=== PATIENT | female | born 1950 | race African-American/Black ===

== ENCOUNTER 2019-10-26 09:14 | Emergency (ER) | payer OTHER ==
--- NOTE | 2019-10-26 10:33 | RAD REPORT ---
EXAM DESCRIPTION: CT - Head Brain Wo Cont - 10/26/2019 10:19 am CLINICAL HISTORY: CONFUSED, transient alteration of awareness COMPARISON: No comparisons TECHNIQUE: Axial 5 mm thick images of the head were obtained without IV contrast. All CT scans are performed using dose optimization technique as appropriate and may include automated exposure control or mA/KV adjustment according to patient size. FINDINGS: No intracranial hemorrhage, mass, edema or shift of mid-line structures. No acute infarcti on changes seen. No abnormal extra-axial fluid collections. Ventricles are normal. No atrophy changes are present. Chronic ischemic changes evident in the parietal white matter. Mastoid air cells and visualized portions of the paranasal sinuses are clear. No acute bony findings. IMPRESSION: No acute intracranial finding identifiable. Chronic ischemic changes evident in the cerebral white matter. Chronic ischemic change can potentially mask acute nonhemorrhagic CVA. MR imaging could be performed if there is concern for acute CVA.
[2019-10-26 10:52] LABS: Absolute Lymphocytes (CBC) 0.8 K/uL (0.7-4.9); Basophils % 0.6 % (0-1.3); Hematocrit 42.1 % (36.0-45.0); Lymphocytes % 15.9 % (15.3-44.8); MPV 9.4 fL (7.6-11.3); RBC Red Blood Cell Count 4.57 M/uL (3.86-4.86)
--- NOTE | 2019-10-26 10:57 | EDPHYS ---
Physician Documentation [facility] Name: Leodna Worthington Age: 69 yrs Sex: Female : 1950 Arrival Date: 10/26/2019 Time: 09:18 Bed 18 Private MD: ED Physician Terry Angeles HPI: 10/25 18:02 This 69 yrs old Black Female presents to ER via Ambulatory with complaints of Confusion.kdr 18:02 The patient presents with confusion, disorientation, to time. Onset: The kdr symptoms/episode began/occurred 2 day(s) ago. Possible causes: CVA or TIA, low blood sugar, unknown. Associated signs and symptoms: The patient has no apparent associated signs or symptoms. Current symptoms: In the emergency department the patient's symptoms are unchanged from the initial presentation. Patient's baseline: Neuro: alert and fully oriented, Motor: no deficits, Ambulation: walks without assistance, Speech: normal for age. The patient has not experienced similar symptoms in the past. The patient has not recently seen a physician. Historical: - Allergies: : No Known Allergies; jl7 - Home Meds: :31 Nifedipine Oral [Active]; losartan oral oral [Active]; Tramadol Oral [Active]; jl7 - PMHx: :31 Hypertension; Hyperlipidemia; Chronic pain; jl7 - Immunization history:: Adult Immunizations not up to date. - Social history:: Smoking status: Patient reports the use of cigarette tobacco products, smokes one pack cigarettes per day. ROS: 18:02 Constitutional: Negative for fever, chills, and weight loss, Eyes: Negative for injury, kdr pain, redness, and discharge, ENT: Negative for injury, pain, and discharge, Neck: Negative for injury, pain, and swelling, Cardiovascular: Negative for chest pain, palpitations, and edema, Respiratory: Negative for shortness of breath, cough, wheezing, and pleuritic chest pain, Abdomen/GI: Negative for abdominal pain, nausea, vomiting, diarrhea, and constipation, Back: Negative for injury and pain, : Negative for injury, bleeding, discharge, and swelling, MS/Extremity: Negative for injury and deformity, Skin: Negative for injury, rash, and discoloration, Psych: Negative for depression, anxiety, suicide ideation, homicidal ideation, and hallucinations, Allergy/Immunology: Negative for hives, rash, and allergies, Endocrine: Negative for neck swelling, polydipsia, polyuria, polyphagia, and marked weight changes, Hematologic/Lymphatic: Negative for swollen nodes, abnormal bleeding, and unusual bruising. 18:02 Neuro: Positive for altered mental status, Negative for dizziness, gait disturbance, loss of consciousness, numbness, seizure activity, speech changes, tinnitus, tremor, visual changes, weakness. Exam: 18:02 Constitutional: This is a well developed, well nourished patient who is awake, alert, kdr and in no acute distress. Head/Face: Normocephalic, atraumatic. Eyes: Pupils equal round and reactive to light, extra-ocular motions intact. Lids and lashes normal. Conjunctiva and sclera are non-icteric and not injected. Cornea within normal limits. Periorbital areas with no swelling, redness, or edema. Neck: Trachea midline, no thyromegaly or masses palpated, and no cervical lymphadenopathy. Supple, full range of motion without nuchal rigidity, or vertebral point tenderness. No Meningismus. Chest/axilla: Normal chest wall appearance and motion. Nontender with no deformity. No lesions are appreciated. Cardiovascular: Regular rate and rhythm with a normal S1 and S2. No gallops, murmurs, or rubs. Normal PMI, no JVD. No pulse deficits. Respiratory: Lungs have equal breath sounds bilaterally, clear to auscultation and percussion. No rales, rhonchi or wheezes noted. No increased work of breathing, no retractions or nasal flaring. Abdomen/GI: Soft, non-tender, with normal bowel sounds. No distension or tympany. No guarding or rebound. No evidence of tenderness throughout. Back: No spinal tenderness. No costovertebral tenderness. Full range of motion. Skin: Warm, dry with normal turgor. Normal color with no rashes, no lesions, and no evidence of cellulitis. MS/ Extremity: Pulses equal, no cyanosis. Neurovascular intact. Full, normal range of motion. Neuro: Awake and alert, GCS 15, oriented to person, place, time, and situation. Cranial nerves II-XII grossly intact. Motor strength 5/5 in all extremities. Sensory grossly intact. Cerebellar exam normal. Normal gait. Psych: Awake, alert, with orientation to person, place and time. Behavior, mood, and affect are within normal limits. Vital Signs: 09:22 BP 185 / 100; Pulse 94; Resp 18 S; Temp 99(O); Pulse Ox 97% on R/A; Weight 79.38 kg (R);jl7 10:32 BP 188 / 92; Pulse 93; Resp 15 S; Pulse Ox 100% on R/A; ca1 11:00 BP 199 / 104; Pulse 80; Resp 15 S; Pulse Ox 100% on R/A; ca1 11:33 BP 199 / 91; Pulse 82; Resp 15 S; Pulse Ox 100% on R/A; ca1 12:03 BP 217 / 98; Pulse 93; Resp 15 S; Pulse Ox 100% on R/A; ca1 12:30 BP 194 / 93; Pulse 82; Resp 15 S; Pulse Ox 99% on R/A; ca1 MDM: 10:56 Patient medically screened. kdr 18:02 Data reviewed: vital signs, nurses notes, lab test result(s), radiologic studies. kdr Counseling: I had a detailed discussion with the patient and/or guardian regarding: the historical points, exam findings, and any diagnostic results supporting the discharge/admit diagnosis, lab results, radiology results, the need for outpatient follow up. 10/25 10:07 Order name: CBC with Diff; Complete Time: 10:56 kdr 10/25 10:07 Order name: Chem 7 kdr 10/25 10:07 Order name: CT Head Brain wo Cont; Complete Time: 10:56 kdr Administered Medications: 11:25 Drug: cloNIDine 0.1 mg Route: PO; ca1 12:10 Follow up: Response: No adverse reaction; Blood pressure is elevated; Blood pressure is ca1 elevated. Notified probiver. Med ordered and given 12:10 Drug: cloNIDine 0.1 mg Route: PO; ca1 12:54 Follow up: Response: No adverse reaction; Blood pressure is lowered ca1 Disposition: 10/26/19 10:56 Discharged to Home. Impression: Confusion, Memory lapses. - Condition is Stable. - Medication Reconciliation Form, Thank You Letter, Antibiotic Education, Prescription Opioid Use form. - Follow up: Private Physician; When: 2 - 3 days; Reason: If symptoms return, Further diagnostic work-up, Recheck today's complaints, Continuance of care, Re-evaluation by your physician. - Problem is new. - Symptoms have improved. Signatures: Dispatcher [employer] EDMS Terry Angeles MD MD kdr Monika Bliss, RN RN jl7 Annette Motta RN RN ca1 Corrections: (The following items were deleted from the chart) 10:57 10:56 10/26/2019 10:56 Discharged to Home. Impression: Confusional arousals. Condition kdr is Stable. Forms are Medication Reconciliation Form, Thank You Letter, Antibiotic Education, Prescription Opioid Use. Follow up: Private Physician; When: 2 - 3 days; Reason: If symptoms return, Further diagnostic work-up, Recheck today's complaints, Continuance of care, Re-evaluation by your physician. Problem is new. Symptoms have improved. kdr 13:03 10:57 10/26/2019 10:56 Discharged to Home. Impression: Confusion, Memory lapses. ca1 Condition is Stable. Forms are Medication Reconciliation Form, Thank You Letter, Antibiotic Education, Prescription Opioid Use. Follow up: Private Physician; When: 2 - 3 days; Reason: If symptoms return, Further diagnostic work-up, Recheck today's complaints, Continuance of care, Re-evaluation by your physician. Problem is new. Symptoms have improved. kdr
--- NOTE | 2019-10-26 10:57 | ER ---
Nurse's Notes [facility] Name: Leodan Worthington Age: 69 yrs Sex: Female : 1950 Arrival Date: 10/26/2019 Time: 09:18 Bed 18 Private MD: Diagnosis: Confusion, Memory lapses Presentation: 10/25 09:22 Chief complaint: Patient states: Confusion started yesterday morning, "I'm confused jl7 about my birthday and that it's 2020." Pt oriented to self, place, and who the president is, pt reports urinary frequency, denies burning and pain with urination. Coronavirus screen: Proceed with normal triage. Patient denies a cough. Patient denies shortness of breath or difficulty breathing. Patient denies measured and/or subjective temperature greater than 100.4F prior to today's visit. Patient denies travel on a cruise ship or to a country the [facility] currently lists as an affected area. Patient denies contact with known and/or suspected case of COVID-19. Ebola Screen: No symptoms or risks identified at this time. Initial Sepsis Screen: Does the patient meet any 2 criteria? No. Patient's initial sepsis screen is negative. Does the patient have a suspected source of infection? No. Patient's initial sepsis screen is negative. Risk Assessment: Do you want to hurt yourself or someone else? Patient reports no desire to harm self or others. Onset of symptoms was October 25, 2019. Care prior to arrival: None. 09:22 Method Of Arrival: Ambulatory [facility] 09:22 Acuity: NANCY 3 jl7 Triage Assessment: :31 General: Appears in no apparent distress. uncomfortable, Behavior is cooperative, jl7 anxious. Pain: Denies pain. Neuro: Level of Consciousness is awake, alert, obeys commands, confused, Oriented to person, place, time, situation. Historical: - Allergies: : No Known Allergies; jl7 - Home Meds: : Nifedipine Oral [Active]; losartan oral oral [Active]; Tramadol Oral [Active]; jl7 - PMHx: :31 Hypertension; Hyperlipidemia; Chronic pain; jl7 - Immunization history:: Adult Immunizations not up to date. - Social history:: Smoking status: Patient reports the use of cigarette tobacco products, smokes one pack cigarettes per day. Screenin:32 Abuse screen: Denies threats or abuse. Denies injuries from another. Nutritional ca1 screening: No deficits noted. Tuberculosis screening: No symptoms or risk factors identified. Fall Risk IV access (20 points). Total Murguia Fall Scale indicates No Risk (0-24 pts). Assessment: 10:32 General: Appears in no apparent distress. comfortable, Behavior is calm, cooperative, ca1 appropriate for age. General: Pt reports confusion and forgetting the day and year [employer]. Pain: Denies pain. Neuro: Level of Consciousness is awake, alert, obeys commands, Oriented to person, place, time, situation, Incident Response Consultant are equal bilaterally Moves all extremities. Speech is normal, Facial symmetry appears normal, Pupils are PERRLA. Cardiovascular: Heart tones S1 S2 present Capillary refill < 3 seconds Patient's skin is warm and dry. Respiratory: Airway is patent Respiratory effort is even, unlabored, Respiratory pattern is regular, symmetrical. GI: Abdomen is round non-distended, Bowel sounds present X 4 quads. Abd is soft and non tender X 4 quads. : No signs and/or symptoms were reported regarding the genitourinary system. EENT: No signs and/or symptoms were reported regarding the EENT system. Derm: Skin is intact, is healthy with good turgor, Skin is pink, warm \\T\\ dry. Musculoskeletal: Circulation, motion, and sensation intact. Capillary refill < 3 seconds. 11:03 Reassessment: Dr. Angeles at bedside. ca1 11:26 Reassessment: Patient appears in no apparent distress at this time. Patient and/or ca1 family updated on plan of care and expected duration. Pain level reassessed. Patient is alert, oriented x 3, equal unlabored respirations, skin warm/dry/pink. BP elevated. D/C pending on BP. Med given to lower BP. Vital Signs: 09:22 BP 185 / 100; Pulse 94; Resp 18 S; Temp 99(O); Pulse Ox 97% on R/A; Weight 79.38 kg (R);jl7 10:32 BP 188 / 92; Pulse 93; Resp 15 S; Pulse Ox 100% on R/A; ca1 11:00 BP 199 / 104; Pulse 80; Resp 15 S; Pulse Ox 100% on R/A; ca1 11:33 BP 199 / 91; Pulse 82; Resp 15 S; Pulse Ox 100% on R/A; ca1 12:03 BP 217 / 98; Pulse 93; Resp 15 S; Pulse Ox 100% on R/A; ca1 12:30 BP 194 / 93; Pulse 82; Resp 15 S; Pulse Ox 99% on R/A; ca1 ED Course: 09:18 Patient arrived in ED. ag5 09:28 Terry Angeles MD is Attending Physician. kdr 09:29 Triage completed. jl7 09:31 Arm band placed on right wrist. jl7 09:52 Annette Motta, RN is Primary Nurse. ca1 10:19 CT Head Brain wo Cont In Process Unspecified. EDMS 10:32 Patient has correct armband on for positive identification. Bed in low position. Call ca1 light in reach. Side rails up X 1. Pulse ox on. NIBP on. Warm blanket given. 10:32 Initial lab(s) drawn, by nj, sent to lab. Inserted saline lock: 20 gauge in right ca1 antecubital area, using aseptic technique. Blood collected. 13:01 IV discontinued, intact, bleeding controlled, No redness/swelling at site. Pressure ca1 dressing applied. 13:02 No provider procedures requiring assistance completed. ca1 Administered Medications: 11:25 Drug: cloNIDine 0.1 mg Route: PO; ca1 12:10 Follow up: Response: No adverse reaction; Blood pressure is elevated; Blood pressure is ca1 elevated. Notified probiver. Med ordered and given 12:10 Drug: cloNIDine 0.1 mg Route: PO; ca1 12:54 Follow up: Response: No adverse reaction; Blood pressure is lowered ca1 Outcome: 10:56 Discharge ordered by . kdr 13:01 Discharged to home ambulatory, with family. ca1 13:01 Condition: stable 13:01 Discharge instructions given to patient, family, Instructed on discharge instructions, follow up and referral plans. instructed on monitoring BP twice a day and keeping a diary of BP and BP meds taken daily Demonstrated understanding of instructions, follow-up care. 13:03 Patient left the ED. ca1 Signatures: Dispatcher [employer] EDMS Terry Angeles MD MD kdr Monika Bliss RN RN jl7 Annette Motta RN RN ca1 Claudette Mesa ag5 Corrections: (The following items were deleted from the chart) 12:53 12:53 BP 194 / 93; Pulse 82bpm; Resp 15bpm; Spontaneous; Pulse Ox 99% RA; ca1 ca1 12:54 12:53 BP 194 / 93; Pulse 82bpm; Resp 15bpm; Spontaneous; Pulse Ox 99% RA; ca1 ca1
[2019-10-26 10:58] LABS: Potassium 3.4 mmol/L (3.5-5.1)
[2019-10-26] MEDS ORDERED: cloNIDine HCL 0.1 MG TAB ONE ×2 (11:32→12:15)
[2019-10-26 13:09] VITALS: TEMP 99
[2019-10-26 13:16] VITALS: BP 194/93; O2SAT 99
== END 2019-10-26 13:03 | disposition home or self-care (01) ==
LOC: ER 09:14
DX: R41.0 Disorientation, unspecified (principal); R41.3 Other amnesia; I10 Essential (primary) hypertension; E78.5 Hyperlipidemia, unspecified; F17.210 Nicotine dependence, cigarettes, uncomplicated
CPT/HCPCS: 36415; 70450; 80048; 85025; 99284

== ENCOUNTER 2022-10-07 07:59 | Observation (INO) | payer OTHER ==
--- OUTSIDE RECORDS SUMMARY | 2022-10-07 08:01 | XMS REPORT | Continuity of Care Document ---
:1950 Author Organization [facility] t Address [address] [address] Care Team Providers Name Role Phone ARTHUR MENSAH Attending Clinician Unavailable Aurea Attending Clinician Unavailable DERIC Attending Clinician Unavailable BRADEN GIRON Attending Clinician Unavailable CAMILO LARSEN Attending Clinician Unavailable Preston Morales Attending Clinician Unavailable Aurea Admitting Clinician Unavailable DERIC Admitting Clinician Unavailable Payers Payer Name Policy Type Policy Number Effective Date Expiration Date S [facility] [id number] 2021 (MEDICARE 00:00:00 REPLACEMENT/ADVANT AGE - HMO) MEDICARE A-[place]: [id number] 2014 [place] 00:00:00 - [facility] Problems This patient has no known problems. Allergies, Adverse Reactions, Alerts This patient has no known allergies or adverse reactions. Social History Smoking Status Start Date Stop Date Source Heavy Tobacco Smoker Helen Lester Medications Ordered Filled Start Stop Current Ordering Indication Dosage Frequency Signature Comments Components Source Medication Medication Date Date Medication? Clinician (SIG) Name Name tramadol 50 tramadol 50 No 1 Q6H tramadol [place] mg tablet mg tablet 50 mg da Take 1 Take 1 tablet Medical tablet tablet Take 1 Group every 6 every 6 tablet hours by hours by every 6 oral route. oral route. hours by oral route. nifedipine nifedipine No 1 Q1D nifedipine [place] ER 90 mg ER 90 mg ER 90 mg da tablet,exte tablet,exte tablet,ext Medical nded nded ended Group release release release Take 1 Take 1 Take 1 tablet tablet tablet every day every day every day by oral by oral by oral route. route. route. olmesartan olmesartan No 1 Q1D olmesartan [place] 40 mg 40 mg 40 mg da tablet Take tablet Take tablet Medical 1 tablet 1 tablet Take 1 Group every day every day tablet by oral by oral every day route. route. by oral route. Vital Signs Vital Name Observation Time Observation Value Comments Source BP Diastolic 2021-12-30 00:00:00 82 mm[Hg] [facility] Height 2021-12-30 00:00:00 63 [in_i] [facility] BMI (Body Mass 2021-12-30 00:00:00 28.5 kg/m2 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 Encounters Start End Encounter Admission Attending Care Care Encounter Source Date/Time Date/Time Type Type Clinicians Facility Department ID 2022-08-03 2022-08-03 Outpatient FLOWER MENSAH [facility] [id number] [place] 09:59:00 09:59:00 ARTHUR -[id number] [facility] 2022-07-08 2022-07-08 [facility] [id number] [place] 09:01:00 09:01:00 ARTHUR [id number] [facility] 2021-12-30 2021-12-30 [facility] [id number] [place] 00:00:00 00:00:00 [id number] Medical Group 2021-12-30 2021-12-30 Eduin [place]ER [place] - [id number] [place] 00:00:00 00:00:00 Discovery inga Mejia MD: [address] [facility] [address], [place] [address] , Ph. 2021-12-23 2021-12-23 Outpatient Aurea WHITE [facility] [id number] [place] 00:00:00 00:00:00 0830 [facility] 2021-11-04 2021-11-04 Outpatient CAROLYNLAVERN[facility] [id number] [place] 04:13:00 04:13:00 _ANN 0712 [facility] 2020-08-09 2020-08-09 Outpatient EL D'WALKER, [facility] [id number] [place] 11:46:00 11:46:00 BRADEN -[id number] [facility] 2020-08-05 2020-08-05 Outpatient EL D'WALKER, [facility] [id number] [place] 10:08:00 10:08:00 BRADEN -[id number] [facility] 2020-03-01 2020-03-01 Outpatient EL D'WALKER, [facility] [id number] [place] 09:07:00 09:07:00 BRADEN -[id number] [facility] 2020-02-19 2020-02-19 Outpatient EL D'WALKER, [facility] [id number] [place] 09:02:00 09:02:00 BRADEN -[id number] [facility] 2019-10-25 2019-10-25 [facility] [id number] [place] 08:59:00 08:59:00 _ANN 0701 [facility] 2019-10-11 2019-10-11 Outpatient EL D'WALKER, [facility] [id number] [place] 07:34:00 07:34:00 BRADEN -[id number] [facility] 2019-04-03 2019-04-03 Outpatient EL D'WALKER, [facility] [id number] [place] 14:46:00 14:46:00 BRADEN -[id number] [facility] 2018-09-21 2018-09-21 Outpatient EL D'WALKER, [facility] [id number] [place] 14:21:00 14:21:00 BRADEN -[id number] [facility] 2018-09-16 2018-09-16 Outpatient EL D'WALKER, [facility] [id number] [place] 07:48:00 07:48:00 BRADEN -[id number] [facility] 2018-03-28 2018-03-28 Outpatient EL D'WALKER, [facility] [id number] [place] 07:55:00 07:55:00 BRADEN -[id number] [facility] 2017-11-25 2017-11-25 Outpatient FLOWER GIRON, [facility] [id number] [place] 08:42:00 08:42:00 BRADEN -[id number] [facility] 2017-02-10 2017-02-10 Outpatient FLOWER GIRON, [facility] [id number] [place] 08:58:00 08:58:00 BRADEN -[id number] [facility] 2017-01-27 2017-01-27 Emergency ER UGOR, [facility] [id number] [place] 08:51:00 10:33:00 CAMILO -[id number] [facility] 2015-06-04 2015-06-04 Outpatient FLOWER Morales, [facility] [id number] [place] 09:55:00 09:55:00 Preston [id number] [facility] 2014-08-03 2014-08-03 Outpatient FLOWER Morales, [facility] [id number] [place] 08:54:00 08:54:00 Preston [id number] [facility] Results This patient has no known results.
[2022-10-07 08:27] LABS: Absolute Lymphocytes (CBC) 0.7 K/uL (0.7-4.9); Hematocrit 36.7 % (36.0-45.0); Lymphocytes % 12.3 % (15.3-44.8); MCV 93.6 fL (80-100); RBC Red Blood Cell Count 3.92 M/uL (3.86-4.86)
--- NOTE | 2022-10-07 08:39 | RAD REPORT ---
EXAM DESCRIPTION: CT - Head Brain Wo Cont - 10/07/2022 8:30 am CLINICAL HISTORY: Alteration of awareness/confusion COMPARISON: 2019 TECHNIQUE: Computed axial tomography of the head was obtained. IV contrast was not requested. All CT scans are performed using dose optimization technique as appropriate and may include automated exposure control or mA/KV adjustment according to patient size. FINDINGS: An intracranial bleed is not seen The ventricles are normal in caliber No extra-axial fluid collection is noted. Mild low-density areas within periventricular, deep and subcortical white matter likely represent isc hemic changes secondary to small vessel disease. Empty sella turcica Small amount of fluid left maxillary sinus IMPRESSION: No acute intracranial abnormality is seen A small amount of fluid left maxillary sinus may indicate acute sinusitis If patient continues to have symptoms to suggest DROP FORGER pathology then MRI of the brain would be recomme nded
--- NOTE | 2022-10-07 08:39 | RAD REPORT ---
EXAM DESCRIPTION: Ryan Single View10/07/2022 8:34 am CLINICAL HISTORY: Cough COMPARISON: none FINDINGS: The lungs appear clear of acute infiltrate. The heart is mildly enlarged IMPRESSION: No acute abnormalities displayed
[2022-10-07 08:42] LABS: Potassium 3.6 mEq/L (3.5-5.1)
[2022-10-07 08:45] LABS: Troponin High Sensitivity 104.7 pg/mL (<58.9)
[2022-10-07] MEDS ORDERED: ASPIRIN 81 MG CHEWABLE TABLET ONE (09:07)
[2022-10-07] MEDS ORDERED: LABETALOL 20 MG/4ML SYRINGE IV ONE ×2 (09:08→10:19)
--- NOTE | 2022-10-07 09:20 | EDPHYS ---
Physician Documentation [facility] Name: Leodan Worthington Age: 72 yrs Sex: Female : 1950 Arrival Date: 10/07/2022 Time: 07:59 Bed 8 Private MD: ED Physician Jeremiah Najera HPI: 10/07 08:22 This 72 yrs old Black Female presents to ER via EMS with complaints of Altered Mental bs3 Status. 08:22 72-year-old female history of hypertension presents after an episode of confusion this bs3 morning she was staying with her friend's house when she was awoken and appeared to be confused EMS was called for seizure-like activity when they got there she seem to be waking up without seizure-like activity and was brought in per the patient the person who she was with said that she was talking in her sleep and got concerned and therefore woke the patient up when she got woken up she was slightly confused. She denies any current complaints. Historical: - Allergies: 08:02 No Known Allergies; bp - Home Meds: 08:02 losartan Oral [Active]; bp - PMHx: 08:02 Chronic pain; Hyperlipidemia; Hypertension; bp - Immunization history:: Adult Immunizations up to date. - Social history:: Smoking status: Patient denies any tobacco usage or history of. ROS: 08:22 Constitutional: Negative for fever, chills bs3 08:22 All other systems are negative. Exam: 08:22 Constitutional: This is a well developed, well nourished patient who is awake, alert, bs3 and in no acute distress. Head/Face: Normocephalic, atraumatic. Eyes: Pupils equal round and reactive to light, extra-ocular motions intact. Lids and lashes normal. ENT: mmm, no posterior phyarngeal erythema Neck: Trachea midline, no thyromegaly, no neck stiffness Chest/axilla: Normal chest wall appearance and motion. Nontender with no deformity. No lesions are appreciated. Cardiovascular: Regular rate and rhythm with a normal S1 and S2. symmetric pulses in upper extremities Respiratory: Lungs have equal breath sounds bilaterally, clear to auscultation, no respiratory distress Abdomen/GI: Soft, non-tender, no rebound or guarding MS/ Extremity: Pulses equal, no cyanosis. Neurovascular intact. Full, normal range of motion. Neuro: Awake and alert, GCS 15, oriented to person, place, time, and situation. Cranial nerves II-XII grossly intact. Motor strength 5/5 in all extremities. Sensory grossly intact. Psych: Awake, alert, with orientation to person, place and time. Behavior, mood, and affect are within normal limits. Vital Signs: 08:01 BP 193 / 99; Pulse 88; Resp 19 S; Temp 97.8(TE); Pulse Ox 96% on R/A; aa5 08:53 BP 209 / 115; Pulse 83; Resp 14; Pulse Ox 99% ; bp 09:30 BP 194 / 92; Pulse 81; Resp 17; Pulse Ox 96% ; bp 10:30 BP 199 / 88; Pulse 84; Resp 16; Pulse Ox 98% ; bp NIH Stroke Scale Scores: 08:02 NIHSS Score: 0 bp MDM: 08:03 Patient medically screened. snw 08:22 Data reviewed: vital signs, nurses notes. ED course: Patient with altered mental status bs3 in the setting of waking up there was no seizure-like activity given that she is now at her baseline is unlikely to be pres will rule out mass we will check electrolytes and reassess. 08:50 ED course: EKG is normal sinus rhythm [address] elevation or depression QTc 440 as bs3 interpreted by myself Labs notable for elevated troponin no prior possible arrhythmia as a cause of her episode versus NSTEMI will admit for ACS rule. 09:17 ED course: . bs3 10/07 08:10 Order name: Basic Metabolic Panel; Complete Time: 08:47 bs3 10/07 08:10 Order name: CBC with Diff; Complete Time: 08:47 bs3 10/07 08:10 Order name: High Sensitivity Troponin; Complete Time: 08:47 bs3 10/07 08:34 Order name: Glucose, Ancillary Testing; Complete Time: 08:47 EDMS 10/07 10:04 Order name: Urinalysis w/ reflexes bs3 10/07 10:16 Order name: Troponin High Sensitivity EDMS 10/07 10:16 Order name: Troponin High Sensitivity EDMS 10/07 10:16 Order name: Troponin High Sensitivity EDMS 10/07 10:22 Order name: Magnesium EDMS 10/07 10:22 Order name: Phosphorus EDMS 10/07 10:24 Order name: T4 Free EDMS 10/07 10:24 Order name: Thyroid Stimulating Hormone EDMS 10/07 10:24 Order name: Urinalysis w/ reflexes EDMS 10/07 10:24 Order name: Basic Metabolic Panel EDMS 10/07 10:24 Order name: Basic Metabolic Panel EDMS 10/07 10:24 Order name: CBC with Automated Diff EDMS 10/07 10:24 Order name: CBC with Automated Diff EDMS 10/07 10:24 Order name: Lipid Profile EDMS 10/07 10:24 Order name: Lipid Profile EDMS 10/07 10:26 Order name: Hemoglobin A1c EDMS 10/07 08:10 Order name: Stroke CXR 1 View; Complete Time: 08:47 bs3 10/07 08:10 Order name: CT Head Brain wo Cont; Complete Time: 08:47 bs3 10/07 10:39 Order name: Echo with Doppler EDMS 10/07 10:39 Order name: Brain Wo Cont EDMS 10/07 08:10 Order name: EKG; Complete Time: 08:10 bs3 10/07 10:22 Order name: Heart Healthy EDMS 10/07 08:10 Order name: Accucheck; Complete Time: 08:20 bs3 10/07 08:10 Order name: Cardiac monitoring; Complete Time: 08:20 bs3 10/07 08:10 Order name: EKG - Nurse/Tech; Complete Time: 08:23 bs3 10/07 08:10 Order name: IV Saline Lock; Complete Time: 08:20 bs3 10/07 08:10 Order name: Labs collected and sent; Complete Time: 08:22 bs3 10/07 08:10 Order name: NPO; Complete Time: 08:20 bs3 10/07 08:10 Order name: O2 Per Protocol; Complete Time: 08:20 bs3 10/07 08:10 Order name: O2 Sat Monitoring; Complete Time: 08:20 bs3 10/07 08:10 Order name: Stroke Swallow Screen; Complete Time: 08:20 bs3 Administered Medications: 09:04 Drug: Aspirin PO Chewable Tablet 324 mg Route: PO; bp 10:53 Follow up: Response: No adverse reaction bp 09:04 Drug: Labetalol IV 10 mg Route: IV; Rate: 1 bolus; Site: right antecubital; bp 10:53 Follow up: IV Status: Completed infusion bp 10:17 Drug: Labetalol IV 10 mg Route: IV; Rate: 1 bolus; Site: right antecubital; bp 10:51 Follow up: Response: No adverse reaction bp 10:53 Follow up: Response: No adverse reaction bp 10:53 Follow up: IV Status: Completed infusion bp Disposition Summary: 10/07/22 09:19 Hospitalization Ordered Hospitalization Status: Observation bs3 Provider: Steven Negrete bs3 Location: Telemetry/MedSurg (observation) bs3 Condition: Stable bs3 Problem: new bs3 Symptoms: have improved bs3 Bed/Room Type: Standard bs3 Room Assignment: 405(10/07/22 10:46) bd Diagnosis - Subsequent non-ST elevation (NSTEMI) myocardial infarction bs3 - Confusional arousals bs3 Forms: - Medication Reconciliation Form bs3 - SBAR form bs3 NIH Stroke Scale - NIH Stroke Score Date: 10/07/2022 Time: 08:02 Total Score = 0 10. Dysarthria (speech clarity - read or repeat words) - 0(Normal) 11. Extinction and Inattention (visual/tactile/auditory/spatial/personal) - 0(No abnormality) 1a. Level of Consciousness (LOC) - 0(Alert) 1b. Level of Consciousness (LOC) (Month \T\ Age) - 0(Both) 1c. LOC Commands (Open \T\ Closes Eyes/Telephone Lines Repairer) - 0(Both) 2. Best Gaze (Lateral Gaze Paresis) - 0(Normal) 3. Visual Field Loss - 0(No visual loss) 4. Facial Palsy - 0(Normal) 5a. Left Arm: Motor (10-second hold) - 0(No drift) 5b. Right Arm: Motor (10-second hold) - 0(No drift) 6a. Left Leg: Motor (5-second hold - always test supine) - 0(No drift) 6b. Right Leg: Motor (5-second hold - always test supine) - 0(No drift) 7. Limb Ataxia (finger/nose \T\ heel/rivera - test with eyes open) - 0(Absent) 8. Sensory Loss (pinprick arms/legs/face) - 0(Normal) 9. Best Language: Aphasia (description/naming/reading) - 0(No aphasia) Initials: bp Signatures: Dispatcher [employer] EDMS Rosemary Gibson Shelly, ASPHALT ROLLER OPERATOR-C ASPHALT ROLLER OPERATOR-Csnw Ike Mccray, RN RN Jeremiah Wynne MD MD bs3 Corrections: (The following items were deleted from the chart) :17 09:17 ED course: us concerning for cbd mass/debris, will d/w gi. bs3 bs3 10:46 09:19 bs3 bd
--- NOTE | 2022-10-07 09:20 | ER ---
Nurse's Notes [facility] Name: Leodan Worthington Age: 72 yrs Sex: Female : 1950 Arrival Date: 10/07/2022 Time: 07:59 Bed 8 Private MD: Diagnosis: Subsequent non-ST elevation (NSTEMI) myocardial infarction;Confusional arousals Presentation: 10/07 08:01 Chief complaint: EMS states: NEIGHBOR STATES POSSIBLE SZ LIKE ACTIVITY AND CONFUSION ON bp WAKING. Coronavirus screen: At this time, the client does not indicate any symptoms associated with coronavirus-19. Ebola Screen: No symptoms or risks identified at this time. Initial Sepsis Screen: Does the patient meet any 2 criteria? No. Patient's initial sepsis screen is negative. Does the patient have a suspected source of infection? No. Patient's initial sepsis screen is negative. Risk Assessment: Do you want to hurt yourself or someone else? Patient reports no desire to harm self or others. Onset of symptoms was October 07, 2022 at 07:00. Care prior to arrival: IV initiated. 18 GA, in the right antecubital area, Glucose check: 107. 08:01 Method Of Arrival: EMS: [facility] bp 08:01 Acuity: NANCY 3 bp Triage Assessment: 08:02 General: Appears in no apparent distress. comfortable, Behavior is calm, cooperative, bp appropriate for age. Pain: Denies pain. EENT: No deficits noted. Neuro: Level of Consciousness is awake, alert, obeys commands, Oriented to person, place. Cardiovascular: No deficits noted. Respiratory: No deficits noted. GI: No signs and/or symptoms were reported involving the gastrointestinal system. : No signs and/or symptoms were reported regarding the genitourinary system. Derm: No deficits noted. Musculoskeletal: No deficits noted. Historical: - Allergies: 08:02 No Known Allergies; bp - Home Meds: 08:02 losartan Oral [Active]; bp - PMHx: 08:02 Chronic pain; Hyperlipidemia; Hypertension; bp - Immunization history:: Adult Immunizations up to date. - Social history:: Smoking status: Patient denies any tobacco usage or history of. Screenin:03 [facility] ED Fall Risk Assessment (Adult) History of falling in the last 3 months, bp including since admission No falls in past 3 months (0 pts). Abuse screen: Denies threats or abuse. Denies injuries from another. Nutritional screening: No deficits noted. Tuberculosis screening: No symptoms or risk factors identified. Assessment: 08:03 General: SEE TRIAGE NOTE. bp 08:53 Reassessment: Patient appears in no apparent distress at this time. Patient is alert, bp oriented x 3, equal unlabored respirations, skin warm/dry/pink. 09:30 Reassessment: ADMIT INITIATED. bp 10:30 Reassessment: No changes from previously documented assessment. Patient is alert, bp oriented x 3, equal unlabored respirations, skin warm/dry/pink. ADMIT IN PROCESS. Vital Signs: 08:01 BP 193 / 99; Pulse 88; Resp 19 S; Temp 97.8(TE); Pulse Ox 96% on R/A; aa5 08:53 BP 209 / 115; Pulse 83; Resp 14; Pulse Ox 99% ; bp 09:30 BP 194 / 92; Pulse 81; Resp 17; Pulse Ox 96% ; bp 10:30 BP 199 / 88; Pulse 84; Resp 16; Pulse Ox 98% ; bp NIH Stroke Scale Scores: 08:02 NIHSS Score: 0 bp ED Course: 08:00 Patient arrived in ED. bp 08:02 Triage completed. bp 08:02 Arm band placed on. bp 08:03 Jaida Ghosh FNP-C is PHCP. snw 08:03 Jeremiah Najera MD is Attending Physician. snw 08:03 Patient has correct armband on for positive identification. Bed in low position. Call bp light in reach. Side rails up X2. 08:04 Maintain EMS IV. Dressing intact. Good blood return noted. Site clean \T\ dry. Gauge \T\ bp site: 18 GA R AC. 08:31 CT Head Brain wo Cont In Process Unspecified. EDMS 08:35 Stroke CXR 1 View In Process Unspecified. EDMS 08:45 Notified ED physician of a critical lab result(s). Troponin 104.7. ll1 08:52 Ike Mccray, RN is Primary Nurse. bp 08:53 EKG done, by ED staff, reviewed by Jeremiah Najera MD. zm 09:19 Steven Negrete is Hospitalizing Provider. bs3 10:51 No provider procedures requiring assistance completed. Patient admitted, IV remains in bp place. Administered Medications: 09:04 Drug: Aspirin PO Chewable Tablet 324 mg Route: PO; bp 10:53 Follow up: Response: No adverse reaction bp 09:04 Drug: Labetalol IV 10 mg Route: IV; Rate: 1 bolus; Site: right antecubital; bp 10:53 Follow up: IV Status: Completed infusion bp 10:17 Drug: Labetalol IV 10 mg Route: IV; Rate: 1 bolus; Site: right antecubital; bp 10:51 Follow up: Response: No adverse reaction bp 10:53 Follow up: Response: No adverse reaction bp 10:53 Follow up: IV Status: Completed infusion bp Medication: 08:03 VIS not applicable for this client. bp Outcome: 09:19 Decision to Hospitalize by Provider. bs3 12:00 Patient left the ED. bp NIH Stroke Scale - NIH Stroke Score Date: 10/07/2022 Time: 08:02 Total Score = 0 10. Dysarthria (speech clarity - read or repeat words) - 0(Normal) 11. Extinction and Inattention (visual/tactile/auditory/spatial/personal) - 0(No abnormality) 1a. Level of Consciousness (LOC) - 0(Alert) 1b. Level of Consciousness (LOC) (Month \T\ Age) - 0(Both) 1c. LOC Commands (Open \T\ Closes Eyes/Heavy Equipment Sales Manager) - 0(Both) 2. Best Gaze (Lateral Gaze Paresis) - 0(Normal) 3. Visual Field Loss - 0(No visual loss) 4. Facial Palsy - 0(Normal) 5a. Left Arm: Motor (10-second hold) - 0(No drift) 5b. Right Arm: Motor (10-second hold) - 0(No drift) 6a. Left Leg: Motor (5-second hold - always test supine) - 0(No drift) 6b. Right Leg: Motor (5-second hold - always test supine) - 0(No drift) 7. Limb Ataxia (finger/nose \T\ heel/rivera - test with eyes open) - 0(Absent) 8. Sensory Loss (pinprick arms/legs/face) - 0(Normal) 9. Best Language: Aphasia (description/naming/reading) - 0(No aphasia) Initials: bp Signatures: Dispatcher [employer] EDMS Jaida Ghosh, SOFTWARE REQUIREMENTS ENGINEER-C SOFTWARE REQUIREMENTS ENGINEER-Csnw Brianna Son RN RN aa5 Ike Mccray RN RN bp Shoshana Martinez RN RN ll1 Alia Brizuela Brandon, MD MD bs3 Corrections: (The following items were deleted from the chart) 08:02 08:01 BP 197 / 101; Pulse 87bpm; Resp 16bpm; Pulse Ox 98%; Temp 98F; bp aa5 11:02 10:54 Reassessment: PT TO MRI bp bp 11:04 08:02 Neuro: Level of Consciousness is awake, alert, obeys commands, Oriented bp to Appropriate for age bp
[2022-10-07] MEDS ORDERED: TRAMADOL HCL 50 MG TAB PO PRN (10:15)
[2022-10-07] MEDS ORDERED: ACETAMINOPHEN 325 MG TABLET PO PRN (10:15)
[2022-10-07] MEDS ORDERED: ONDANSETRON 4 MG/2 ML VIAL IV PRN (10:20)
--- NOTE | 2022-10-07 10:36 | P.HP ---
Certification for Inpatient Patient admitted to: Observation With expected LOS: <2 Midnights Patient will require the following post-hospital care: None Practitioner: I am a practitioner with admitting privileges, knowledge of patient current condition, hospital course, and medical plan of care. Services: Services provided to patient in accordance with Admission requirements found in Title 42 Section 412.3 of the Code of Federal Regulations Patient History Date of Service: 10/07/22 Reason for admission: Altered mental status History of Present Illness: Patient is a 72-year-old female with a past medical history significant for chronic pain syndrome, hyperlipidemia, hypertension, nicotine dependence who presents with complaint of altered mental status. Patient is confused and unable to provide any accurate history. Patient is alert and oriented x2. Per medical record patient was at a friend's place when she was noted to be confused on being awoken. No other signs and symptoms reported. Symptoms are aggravated or relieved by nothing. Patient was brought to the hospital for medical evaluation. - Past Medical/Surgical History -: Chronic pain syndrome -: Hypertension -: Hyperlipidemia Past Surgical History: Reviewed- Non-Contributory - Family History Family History: Reviewed- Non-Contributory - Social History Smoking Status: Current every day smoker Counseled patient to stop smoking for: less than 10 minutes Smoking therapy provided: Yes (Patient confused) Patient receptive to therapy: Yes Alcohol use: Yes CD- Drugs: No Caffeine use: Yes Place of Residence: Home Review of Systems is unable to be obtained (Patient is confused. Unable to provide any accurate history) Physical Examination - Physical Exam General: Alert, In no apparent distress, Oriented x2, Cooperative, Confused HEENT: Atraumatic, PERRLA, Mucous membr. moist/pink, EOMI, Sclerae nonicteric Neck: Supple, 2+ carotid pulse no bruit, No LAD, Without JVD or thyroid abnormality Respiratory: Clear to auscultation bilaterally, Normal air movement Cardiovascular: No edema, Regular rate/rhythm, Normal S1 S2 Capillary refill: <2 Seconds Gastrointestinal: Normal bowel sounds, Soft and benign, Non-distended, No tenderness Musculoskeletal: No clubbing, No swelling, No tenderness Integumentary: No rashes, No significant lesion, No tenderness/swelling Neurological: Normal speech, Normal tone, Normal reflexes 2+, Normal affect Lymphatics: No axilla or inguinal lymphadenopathy - Studies Laboratory Data (last 24 hrs) 10/07/22 08:17: WBC 5.70, Hgb 12.1, Hct 36.7, Plt Count 290 10/07/22 08:17: Sodium 139, Potassium 3.6, BUN 18, Creatinine 0.72, Glucose 109 H Assessment and Plan - Plan --Acute encephalopathy. Unclear etiology. UA pending to rule out UTI. CT head unremarkable for any acute intracranial abnormality. MRI brain pending for further evaluation. Continue supportive care. --Hypertension. Will allow for permissive hypertension pending CVA rule out via MRI brain. We will continue to monitor blood pressure levels. --Elevated troponin--104.7. Patient denies any chest pain. We will continue to trend troponin levels. Telemetry to monitor for any significant arrhythmia. Echocardiogram pending to assess cardiac structures and function. Cardiology consulted. Will await further recommendations. --CKD 2. Baseline functions unknown. We will continue to monitor renal functions. -- Chronic pain syndrome. Continue current pain medication regimen. --Nicotine dependence. Patient placed on nicotine patch. Patient will be counseled on tobacco cessation when appropriate. --DVT prophylaxis with Lovenox subQ. Discharge Plan: Home Plan to discharge in: 48 Hours - Advance Directives Does patient have a Living Will: No Does patient have a Durable POA for Healthcare: No - Code Status/Comfort Care Code Status Assessed: Yes Physician Review: Patient Assessed, Agree with Above Assessment and Plan Critical Care: No
[2022-10-07] MEDS ORDERED: LABETALOL 20 MG/4ML SYRINGE IV PRN ×2 (11:06→18:07)
[2022-10-07 11:10] LABS: Phosphorus 2.4 mg/dL (2.5-4.9); Thyroid Stimulating Hormone 0.566 uIU/mL (0.358-3.740)
[2022-10-07] MEDS ORDERED: HYDRALAZINE HCL 20 MG/ML VIAL IV PRN (12:15)
[2022-10-07 13:02] VITALS: BMI 30.6
--- NOTE | 2022-10-07 17:15 | RAD REPORT ---
EXAM DESCRIPTION: MRI - Brain Wo Cont - 10/07/2022 4:14 pm CLINICAL HISTORY: AMS, R O CVA COMPARISON: Noncontrast head CT of the same day TECHNIQUE: Multiplanar multisequence MRI of the brain performed without IV contrast. FINDINGS: Small punctate foci of diffusion restriction along the right postcentral gyral cortex and adjacent subcortical white matter. Corresponding mild T2/FLAIR signal abnormalities. No evidence of acute intracranial hemorrhage or abnormal extra-axial fluid collections. Mild diffuse parenchymal volume loss. Ventricular caliber otherwise within normal for age. Empty sell a is incidentally noted. Other scattered periventricular and deep white matter T2/FLAIR hyperintensities, nonspecific, but sug gestive of chronic small vessel ischemic changes. No mass effect or midline shift. Major vascular flow voids are preserved. Mastoid air cells and paranasal sinuses are clear. IMPRESSION: Small punctate foci of diffusion restriction along the right postcentral gyral cortex an d adjacent subcortical white matter, suggestive of acute to subacute infarcts. Incidentally noted empty sella. The findings were communicated to Steven Negrete on 10/07/2022 at 17:08 hours.
[2022-10-07] MEDS: CLOPIDOGREL 75 MG TABLET PO SCH (17:53)
--- NOTE | 2022-10-07 20:30 | RAD REPORT ---
EXAM DESCRIPTION: CT - Head angio - 10/07/2022 7:53 pm CLINICAL HISTORY: Acute CVA COMPARISON: Head Brain Wo Cont dated 10/07/2022; Head Brain Wo Cont dated 10/26/2019; Neck Angio dated 10/07/2022; Brain Wo Cont dated 10/07/2022 TECHNIQUE: Axial CT angiography images of the head was performed with multiplanar and maximum intens ity projection reconstructions. Images performed following intravenous administration of 100mL Isovue 370. All CT scans are performed using dose optimization technique as appropriate and may include automated exposure control or mA/KV adjustment according to patient size. FINDINGS: No evidence of large vessel occlusion. No evidence of aneurysm or dissection flap is detec faustino. No flow-limiting stenosis or vascular malformation identified. Empty sella again seen. Antegrade flow is seen in the vertebral arteries. The vertebral arteries are codominant. The visualized dural venous sinuses are grossly patent. IMPRESSION: No evidence of large vessel occlusion or flow-limiting stenosis.
--- NOTE | 2022-10-07 20:47 | RAD REPORT ---
EXAM DESCRIPTION: CT - Neck Angio - 10/07/2022 7:53 pm CLINICAL HISTORY: Acute CVA COMPARISON: No comparisons TECHNIQUE: Axial CT angiography images of the head was performed with multiplanar and maximum intens ity projection reconstructions. Images performed following intravenous administration of 100mL Isovue 370. All CT scans are performed using dose optimization technique as appropriate and may include automated exposure control or mA/KV adjustment according to patient size. Quantification of carotid stenosis, if any, is performed according to NASCET criteria. FINDINGS: A left aortic arch is identified with normal three vessel configuration of the great vesse ls. No significant flow abnormality is seen of the common carotid bilaterally. Dense atherosclerotic plaque formation at the carotid bulbs and proximal ICAs bilaterally. Narrowest luminal diameter on the right at the most distal aspect of the short segment of caliber attenuation a long the proximal right ICA, axial image 137/192, measures 2.8 millimeter, compared to 4.9 millimeter more distally. This amounts to 43% stenosis by NASCET criteria. Narrowest luminal diameter on the le ft also at the most distal aspect of segmental narrowing measures 2.4 millimeter, compared to 5.3 mil limeter more distally. This amounts to 55% stenosis by NASCET criteria. Right vertebral artery is not opacified at the origin. Reconstitution of the distal right V3 segment via a branch of the right ECA. Left vertebral artery is patent to the skullbase. IMPRESSION: Dense atherosclerotic plaque formation along the proximal ICAs, contributing to 55% sten osis on the left, and less than 50% stenosis on the right. 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 CAROTID STENOSIS REFERENCE USING NASCET CRITERIA: % ICA stenosis = (1 - narrowest ICA diameter/diameter of distal cervical ICA) x 100. Mild - <50% stenosis. Moderate - 50-69% stenosis. Severe - 70-94% stenosis. Near occlusion - 95-99% stenosis. Occluded - 100% stenosis.
[2022-10-07] MEDS ORDERED: ATORVASTATIN 40 MG TAB PO SCH (21:00)
[2022-10-08] MEDS: LABETALOL 20 MG/4ML SYRINGE IV PRN ×3 (01:06→13:27)
[2022-10-08 01:34] VITALS: O2SAT 96
[2022-10-08 06:38] LABS: Absolute Lymphocytes (CBC) 1.3 K/uL (0.7-4.9); Hematocrit 35.8 % (36.0-45.0); Lymphocytes % 24.6 % (15.3-44.8); MCV 93.4 fL (80-100); MPV 8.5 fL (7.6-11.3); RBC Red Blood Cell Count 3.83 M/uL (3.86-4.86)
[2022-10-08 06:49] LABS: Potassium 3.4 mEq/L (3.5-5.1)
--- NOTE | 2022-10-08 07:22 | EKG ---
Test Date: 2022-10-07 Test Time: 08:23:12 Driller And Broacher: JD MEASUREMENT RESULTS: Intervals: Rate: 85 MA: 210 QRSD: 122 QT: 370 QTc: 440 [place]: P: 67 MA: 210 QRS: 2 T: 88 INTERPRETIVE STATEMENTS: Sinus rhythm with 1st degree AV block Otherwise normal ECG No previous ECG available for comparison Electronically Signed On 10-08-22 07:20:02 CDT by Indio Blandon
[2022-10-08] MEDS: CLOPIDOGREL 75 MG TABLET PO SCH (08:35)
[2022-10-08] MEDS ORDERED: ASPIRIN 81 MG CHEWABLE TABLET PO SCH (09:00)
[2022-10-08] MEDS ORDERED: ENOXAPARIN 40 MG/0.4 ML SQ SCH (09:00)
[2022-10-08] MEDS ORDERED: NICOTINE 21 MG/PAT TD SCH (09:00)
[2022-10-08] MEDS ORDERED: NIFEDIPINE XL 90 MG TABLET PO SCH (14:17)
--- NOTE | 2022-10-08 14:47 | P.DS ---
Admission Date: 10/07/22 Discharge Date: 10/08/22 Disposition: ROUTINE DISCHARGE Discharge Condition: FAIR Reason for Admission: Altered mental status - Problems (1) TIA (transient ischemic attack) Current Visit: Yes Status: Acute (2) Essential hypertension Current Visit: Yes Status: Acute (3) Elevated troponin Current Visit: Yes Status: Acute Brief History of Present Illness: Patient is a 72-year-old female with a past medical history significant for chronic pain syndrome, hyperlipidemia, hypertension, nicotine dependence who presents with complaint of altered mental status. Patient was confused and unable to provide any accurate history. Patient is alert and oriented x2. Per medical record patient was at a friend's place when she was noted to be confused on being awoken. Head CT done in the emergency department did not show any acute disease. TIA suspected. Patient was hospitalized for further management. Hospital Course: Patient placed on observation on the medical floor. Stroke protocol initiated. She had no trouble swallowing. Patient ambulated without support, no gait disturbance. MRI of the brain done showed small punctate foci of diffusion restriction along the right postcentral gyral cortex and adjacent subcortical white matter, suggestive of acute to subacute infarcts. Case discussed with neurology-Dr. Gurrola who recommended aspirin and Plavix, and folic acid and to obtain CTA head and neck. CTA head and neck done showed no evidence of large vessel occlusion or flow-limiting stenosis which would warrant intervention. 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 Overall patient was asymptomatic during the hospital stay. Her troponin was mildly elevated but trended flat. She had no chest pain or shortness of breath. Echocardiogram was done and noncontributory. Patient blood pressure was elevated. Her home dose of nifedipine was resumed for a target systolic blood pressure between 140-160. SHAKILA inhibitor was held during the hospital stay and resumed on discharge. LDL was significantly elevated. Patient started on Lipitor and counseled on low-fat low-cholesterol diet. Vital Signs/Physical Exam: Temp Pulse Resp BP Pulse Ox 98.6 F 66 16 212/86 H 96 10/08/22 12:00 10/08/22 13:27 10/08/22 12:00 10/08/22 13:27 10/08/22 12:00 General: Alert, In no apparent distress, Oriented x3 HEENT: Mucous membr. moist/pink Neck: JVD not distended Respiratory: Clear to auscultation bilaterally, Normal air movement Cardiovascular: No edema, Regular rate/rhythm, Normal S1 S2 Gastrointestinal: Soft and benign, Non-distended, No tenderness Musculoskeletal: No swelling Integumentary: No rashes Neurological: Normal speech, Normal strength at 5/5 x4 extr, Cranial nerves 3-12 intact Laboratory Data at Discharge: WBC 5.50 thou/uL (4.3-10.9) 10/08/22 05:55 Hgb 11.8 g/dL (12.0-15.0) L 10/08/22 05:55 Hct 35.8 % (36.0-45.0) L 10/08/22 05:55 Plt Count 285 thou/uL (152-406) 10/08/22 05:55 Sodium 139 mEq/L (136-145) 10/08/22 05:55 Potassium 3.4 mEq/L (3.5-5.1) L 10/08/22 05:55 BUN 21 mg/dL (7-18) H 10/08/22 05:55 Creatinine 0.95 mg/dL (0.55-1.02) 10/08/22 05:55 Glucose 106 mg/dL (74-106) 10/08/22 05:55 Phosphorus 2.4 mg/dL (2.5-4.9) L 10/07/22 08:17 Magnesium 2.0 mg/dL (1.6-2.4) 10/07/22 08:17 Triglycerides 74 mg/dL (<150) 10/08/22 05:55 Cholesterol 222 mg/dL (<200) H 10/08/22 05:55 HDL Cholesterol 61 mg/dL (40-60) H 10/08/22 05:55 Cholesterol/HDL Ratio 3.64 10/08/22 05:55 Home Medications: Nifedipine [Nifedipine ER] 90 mg PO DAILY 10/07/22 Olmesartan Medoxomil 40 mg PO DAILY 10/07/22 Aspirin Chewable [Aspirin Chewable*] 81 mg PO DAILY #30 tab.chew 10/08/22 Atorvastatin Calcium [Lipitor] 40 mg PO BEDTIME #30 tab 10/08/22 Clopidogrel Bisulfate [Plavix*] 75 mg PO DAILY #30 tab 06/15/23 Folic Acid 1 mg PO DAILY #30 tab 10/08/22 Nicotine [Nicoderm*] 21 mg TD DAILY #30 patch 10/08/22 New Medications: Aspirin Chewable [Aspirin Chewable*] 81 mg PO DAILY #30 tab.chew Folic Acid 1 mg PO DAILY #30 tab Atorvastatin Calcium [Lipitor] 40 mg PO BEDTIME #30 tab Nicotine [Nicoderm*] 21 mg TD DAILY #30 patch Clopidogrel Bisulfate [Plavix*] 75 mg PO DAILY #30 tab Diet: AHA Activity: Fall precautions Followup: Aidan Bliss MD [Primary Care Provider] - 1-2 Weeks Time spent managing pt's care (in minutes): 33
[2022-10-08 16:29] VITALS: BP 212/92; TEMP 98.8
--- NOTE | 2022-10-09 06:45 | ECHO ---
HEIGHT: 5 ft 3 in WEIGHT: 172 lb 14.4 oz DATE OF STUDY: 10/08/[address]: Kiarra Brock 2-DIMENSIONAL: YES M.MODE: YES DOPPLER: YES COLOR FLOW: YES TDS: PORTABLE: YES DEFINITY: BUBBLE STUDY: DIAGNOSIS: ELEVATED TROPONIN CARDIAC HISTORY: CATHERIZATION: NO SURGERY: NO PROSTHETIC VALVE: NO PACEMAKER: NO MEASUREMENTS (cm) DIASTOLIC (NORMALS) SYSTOLIC (NORMALS) IVSd 1.1 (0.6-1.2) LA Diam 2.7 (1.9-4.0) LVEF 78% LVIDd 5.0 (3.5-5.7) LVIDs 2.7 (2.0-3.5) %FS 47% LVPWd 1.2 (0.6-1.2) Ao Diam 2.5 (2.0-3.7) 2 DIMENSIONAL ASSESSMENT: RIGHT ATRIUM: NORMAL LEFT ATRIUM: NORMAL RIGHT VENTRICLE: NORMAL LEFT VENTRICLE: NORMAL TRICUSPID VALVE: MILD TRICUSPID REGURGITATION MITRAL VALVE: MILD MITRAL REGURGITATION PULMONIC VALVE: MILD PULMONIC INSUFFICIENCY AORTIC VALVE: NORMAL PERICARDIAL EFFUSION: NONE AORTIC ROOT: NORMAL LEFT VENTRICULAR WALL MOTION: NORMAL DOPPLER/COLOR FLOW: SEE BELOW COMMENTS: 1. NORMAL LEFT VENTRICULAR EJECTION FRACTION GREATER THAN 60% WITH NORMAL WALL MOTION 2. MILD DIASTOLIC DYSFUNCTION 3. MILD MITRAL REGURGITATION, TRICUSPID REGURGITATION, PULMONIC INSUFFICIECNY TECHNOLOGIST: ELSY SMYTH
== END 2022-10-08 18:18 | disposition home or self-care (01) ==
LOC: ER 07:59 → 4TH 11:22
PROVIDERS: ADMIT Internal Medicine; ATTEND Internal Medicine
DX: G45.9 Transient cerebral ischemic attack, unspecified (principal); G93.40 Encephalopathy, unspecified; E78.5 Hyperlipidemia, unspecified; I10 Essential (primary) hypertension; F17.210 Nicotine dependence, cigarettes, uncomplicated; G89.4 Chronic pain syndrome; R77.8 Other specified abnormalities of plasma proteins; N18.2 Chronic kidney disease, stage 2 (mild); R29.700 NIHSS score 0
CPT/HCPCS: 96365; 93005; 93306; 85025 ×2; 80048 ×2; 36415 ×2; 83735; 84100; 80061; 82947; 84443; 83036; 84484 ×3; 84439; 70450; 70496; 70498; 71045; 70551; 97161; 99285; 96366; Q9967; J0360; J1650; J2405; G0378 ×3

== ENCOUNTER 2023-11-16 07:21 | Day surgery (SDC) | payer OTHER ==
[2023-11-11 09:13] LABS: Absolute Eosinophils 0.2 K/uL (0-0.5); Absolute Monocytes 0.6 K/uL (0.1-1.3); Absolute Neutrophil 2.5 K/uL (1.8-8.0); Basophils % 0.7 % (0-1.3); Eosinophils % 4.2 % (0-4.4); Hematocrit 39.7 % (36.0-45.0); Hemoglobin 12.9 g/dL (12.0-15.0); Lymphocytes % 37.2 % (15.3-44.8); MCH 30.7 pg (27.0-35.0); MCHC 32.5 g/dL (32.0-36.0); MCV 94.4 fL (80-100); MPV 8.4 fL (7.6-11.3); Monocytes % 11.2 % (3.3-12.3); Neutrophils % 46.7 % (41.7-73.7); Platelets 336 thou/uL (152-406); RBC Red Blood Cell Count 4.21 M/uL (3.86-4.86); Red Cell Distribution Width 14.6 % (12.1-15.2)
[2023-11-11 09:18] LABS: Anion Gap 6.1 mEq/L (5.0-15.0); Potassium 3.1 mEq/L (3.5-5.1)
--- NOTE | 2023-11-11 09:21 | RAD REPORT ---
EXAM DESCRIPTION: Ryan Duckworth And Shree (2 Views)11/11/2023 9:09 am CLINICAL HISTORY: Hypertension. Preop for cardiac catheterization COMPARISON: 2022 FINDINGS: The lungs appear clear of acute infiltrate. The heart is mildly enlarged IMPRESSION: No acute abnormalities displayed
[2023-11-11 09:35] LABS: PT Prothrombin Time 11.6 SECONDS (9.4-12.5); Protime INR 1.04
--- NOTE | 2023-11-11 12:30 | EKG ---
Test Date: 2023-11-11 Test Time: 08:55:26 Health Care Analyst: MINH MEASUREMENT RESULTS: Intervals: Rate: 77 NE: QRSD: 122 QT: 372 QTc: 420 Tingley: P: 81 NE: QRS: 50 T: 197 INTERPRETIVE STATEMENTS: Atrial fibrillation Nonspecific intraventricular conduction delay ST & T wave abnormality, consider inferolateral ischemia Abnormal ECG Compared to ECG 10/07/2022 08:23:12 Intraventricular conduction delay now present ST (T wave) deviation now present Possible ischemia now present Sinus rhythm no longer present First degree AV block no longer present Electronically Signed On 11-11-23 12:29:38 CDT by Garret Loja
[2023-11-16] MEDS ORDERED: NA CHLORIDE 0.9% 0 ML ONE (07:22)
[2023-11-16] MEDS ORDERED: HEPA 1000U/500MLS 2,000 UNIT/1,000 ML BAG IV ONE (08:49)
[2023-11-16] MEDS ORDERED: LIDOCAINE 1% 20 ML MDV ONE (08:49)
[2023-11-16] MEDS ORDERED: NA CHLORIDE 0.9% 500 ML ONE (08:50)
[2023-11-16] MEDS ORDERED: FENTANYL CITR 100 MCG/2 ML ONE (08:50)
[2023-11-16] MEDS ORDERED: ATROPINE SULF 1 MG/10 ML SYR IV ONE (08:50)
[2023-11-16] MEDS ORDERED: HEPARIN 10,000 UNIT/10 ML VIAL IV ONE (08:50)
[2023-11-16] MEDS ORDERED: MIDAZOLAM HCL 2 MG/2 ML INJ ONE ×2 (08:50→09:21)
[2023-11-16] MEDS ORDERED: HYDRALAZINE HCL 20 MG/ML VIAL ONE ×2 (09:21→11:41)
--- NOTE | 2023-11-16 10:30 | OP ---
Date of Procedure: 11/16/2023 Surgeon: Garret Loja Procedures Performed: 1.Lower abdominal aortogram. 2.Peripheral runoff. Indications For Procedure: Claudications, abnormal NIKOLAY. Complications: None. Estimated Blood Loss: Less than 50 cc. Access: Right common femoral artery, closed by manual compression. Sedation Time: 30 minutes with 3 of Versed and 75 of fentanyl. Description Of Procedure: After risks, benefits, and alternatives were explained to the patient, the patient agreed to proceed with the procedure and signed informed consent. The patient was brought [facility] to the labor delivery rn, prepped and draped in sterile fashion. Time-out was performed. Sedation was ad ministered. Next, an ultrasound-guided right common femoral artery access was obtained. A 6-Vincentian Omniflush was advanced to the lower abdominal aorta for lower abdominal angiogram that was exchanged for an ABDELRAHMAN catheter and to the left common iliac artery for the left lower extremity angiogram and th at catheter was removed, and right lower extremity angiogram was done through the sheath. At the end of procedure, sheath was removed and manual compression applied. Hemostasis achieved. The patient was moved back to recovery in stable condition. Findings: 1.Lower abdominal aorta is patent. 2.Right common iliac artery patent. 3.Right internal iliac artery patent. 4.Right external iliac artery, diffuse, calcified, 60% to 70% disease. 5.Right common femoral artery, diffuse, heavily calcified 70% disease. 6.Right SFA, proximal 70% disease, then mid mild LI with focal 50% disease and distal 50% disease. 7.Right popliteal artery patent. 8.Right anterior tibial artery, mid occluded. 9.Right posterior tibial/peroneal is patent. 10.2-vessel runoff on the right side. 11.Left common iliac artery is patent. 12.Left internal iliac artery is proximal, occluded. 13.Left external iliac artery, heavily calcified 80% disease proximally, mid mild LI, and distal vladimir cified 70% disease. 14.Left common femoral artery, 90% heavily calcified disease. 15.Left SFA is patent. 16.Left profunda is patent. 17.Left popliteal is patent. 18.Left anterior tibial artery is occluded. 19.Left posterior tibial artery/peroneal is patent. 20.2-vessel runoff on the left side. Assessment And Plan: Significant bilateral external iliac artery disease, heavily calcified, also wi th bilateral significant common femoral artery disease, heavily calcified. The plan will be to consu lt Vascular Surgery for a bypass. ANIA/VIOLETTA Voice ID: [id number] Report ID: [id number]
[2023-11-16] MEDS: HYDRALAZINE HCL 20 MG/ML VIAL IV ONE (11:40)
[2023-11-18 16:37] VITALS: BP 160/69; TEMP 97.9; O2SAT 99
== END 2023-11-16 13:10 | disposition home or self-care (01) ==
LOC: CCL 07:21
PROVIDERS: ATTEND Internal Medicine Interventional Cardiology
DX: I70.223 Atherosclerosis of native arteries of extremities with rest pain, bilateral legs (principal); I10 Essential (primary) hypertension; E78.2 Mixed hyperlipidemia; F17.210 Nicotine dependence, cigarettes, uncomplicated; Z79.02 Long term (current) use of antithrombotics/antiplatelets; Z79.899 Other long term (current) drug therapy; Z82.49 Family history of ischemic heart disease and other diseases of the circulatory system
CPT/HCPCS: 93005; 85025; 80048; 36415; 85610; 85730; 71046; 75716; 75625; 36245; 76937; C1893; C1887; J0360 ×2; J2001; J2250 ×2; J3010; J7040; 36200; 36246; 99152; 99153; J0461